=== PATIENT | male | born 1970 | race African-American/Black ===

== ENCOUNTER 2022-04-12 12:30 | Inpatient (IN) | payer OTHER ==
[2022-04-12 14:20] VITALS: BMI 47.5
[2022-04-12] MEDS ORDERED: NICOTINE 10 MG CARTRIDGE (INHALER) IH PRN (17:59)
[2022-04-12] MEDS ORDERED: DICYCLOMINE HCL 10 MG CAPSULE PO PRN (17:59)
[2022-04-12] MEDS ORDERED: chlordiazePOXIDE HCL 25 MG CAPSULE PO PRN (17:59)
[2022-04-12] MEDS ORDERED: BENZOCAINE/MENTHOL (CHLORASEPTIC ) LOZENGE MM PRN (17:59)
[2022-04-12] MEDS ORDERED: LOPERAMIDE HCL 2 MG CAPSULE PO PRN (17:59)
[2022-04-12] MEDS ORDERED: MAGNESIUM CITRATE 300 ML BOTTLE PO PRN (17:59)
[2022-04-12] MEDS ORDERED: ACETAMINOPHEN 325 MG TABLET (FP) PO PRN ×2 (17:59)
[2022-04-12] MEDS ORDERED: MAG HYDROX/AL HYDROX/SIMETH 30 ML UNIT-DOSE CUP PO PRN (17:59)
[2022-04-12] MEDS ORDERED: MAGNESIUM HYDROX 2400MG/30ML ORAL SUSPENSION 30 ML CUP PO PRN (17:59)
[2022-04-12] MEDS ORDERED: BISMUTH SUBSALICYLATE 524 MG/30 ML PO PRN (17:59)
[2022-04-12] MEDS ORDERED: IBUPROFEN 400 MG TABLET (FP) PO PRN (17:59)
[2022-04-12] MEDS ORDERED: ONDANSETRON *ODT* 4 MG TABLET SL PRN (17:59)
[2022-04-12] MEDS ORDERED: amLODIPine BESYLATE 5 MG TABLET (FP) ONE (19:17)
[2022-04-12] MEDS: amLODIPine BESYLATE 5 MG TABLET (FP) PO SCH (19:21)
[2022-04-12] MEDS: hydrOXYzine PAMOATE 25 MG CAPSULE (FP) PO PRN (19:46)
[2022-04-12] MEDS: METHOCARBAMOL 500 MG TABLET PO PRN (19:46)
[2022-04-12] MEDS: THIAMINE HCL 100 MG TABLET (FP) PO SCH (22:23)
[2022-04-12] MEDS: MELATONIN 5 MG TABLETS PO SCH (22:23)
[2022-04-12] MEDS: chlordiazePOXIDE HCL 25 MG CAPSULE PO SCH (22:23)
[2022-04-13] MEDS: chlordiazePOXIDE HCL 25 MG CAPSULE PO SCH ×4 (06:23→22:24)
[2022-04-13] MEDS: amLODIPine BESYLATE 5 MG TABLET (FP) PO SCH (10:07)
[2022-04-13] MEDS: PRENATAL VITAMINS W/ FOLIC ACID TABLET (FP) PO SCH (10:07)
[2022-04-13] MEDS: HYDROCHLOROTHIAZIDE 25 MG TABLET (FP) PO SCH (10:08)
[2022-04-13] MEDS: NICOTINE 21 MG/24 HOURS TOPICAL PATCH TD SCH (10:08)
[2022-04-13 13:30] LABS: ALBUMIN 3.2 g/dl (3.4-5.0); BLOOD UREA NITROGEN 22.3 mg/dL (7-18); CALCIUM 8.5 mg/dL (8.5-10.1)
[2022-04-13 13:33] LABS: CREATININE 1.2 mg/dL (0.55-1.3)
[2022-04-13 13:35] LABS: BILIRUBIN,TOTAL 0.4 mg/dL (0.2-1); TOT PROT 6.2 g/dl (6.4-8.2)
[2022-04-13 13:42] LABS: HEMOGLOBIN 12.9 GM/dL (11.7-16.9); MCH 29.7 pg (25.7-33.7); MCHC 33.1 g/dl (32.0-35.9); MEAN CELL VOLUME 89.6 fl (80-96); MEAN PLT VOLUME 8.8 fl (7.5-11.1); PLATELET COUNT 284 10^3/uL (134-434); RBC 4.35 M/mm3 (4.00-5.60); WHITE BLOOD COUNT 6.8 K/mm3 (4.0-10.0)
[2022-04-13] MEDS: MELATONIN 5 MG TABLETS PO SCH (22:23)
[2022-04-13] MEDS: METHOCARBAMOL 500 MG TABLET PO PRN (22:23)
[2022-04-13] MEDS: THIAMINE HCL 100 MG TABLET (FP) PO SCH (22:23)
[2022-04-13] MEDS: hydrOXYzine PAMOATE 25 MG CAPSULE (FP) PO PRN (22:23)
[2022-04-14] MEDS: chlordiazePOXIDE HCL 25 MG CAPSULE PO SCH ×4 (05:29→22:11)
[2022-04-14] MEDS: HYDROCHLOROTHIAZIDE 25 MG TABLET (FP) PO SCH (10:41)
[2022-04-14] MEDS: amLODIPine BESYLATE 5 MG TABLET (FP) PO SCH (10:41)
[2022-04-14] MEDS: PRENATAL VITAMINS W/ FOLIC ACID TABLET (FP) PO SCH (10:42)
[2022-04-14] MEDS: NICOTINE 21 MG/24 HOURS TOPICAL PATCH TD SCH (10:44)
[2022-04-14] MEDS ORDERED: PENICILLIN G BENZATHINE 2,400,000 UNIT/4 ML PFS IM ONE (11:20)
[2022-04-14] MEDS: IBUPROFEN 600 MG TABLET (FP) PO PRN ×2 (14:41→18:13)
[2022-04-14 20:56] VITALS: RESP 18
[2022-04-14] MEDS: MELATONIN 5 MG TABLETS PO SCH (22:11)
[2022-04-14] MEDS: THIAMINE HCL 100 MG TABLET (FP) PO SCH (22:11)
[2022-04-14] MEDS ORDERED: MELATONIN 5 MG TABLETS PO ONE (22:39)
[2022-04-15] MEDS ORDERED: chlordiazePOXIDE HCL 10 MG CAPSULE PO PRN
[2022-04-15] MEDS ORDERED: chlordiazePOXIDE HCL 10 MG CAPSULE PO SCH (05:00)
[2022-04-15 09:19] VITALS: BP 133/83; PULSE 85; TEMP 97.5
[2022-04-16] MEDS ORDERED: chlordiazePOXIDE HCL 10 MG CAPSULE PO SCH (05:00)
[2022-04-17] MEDS ORDERED: chlordiazePOXIDE HCL 10 MG CAPSULE PO ONE (05:00)
== END 2022-04-15 10:25 | disposition left against medical advice (07) | DRG 770 ==
LOC: YASAS 12:30 → Y3N 18:53
PROVIDERS: ADMIT Allergy & Immunology; ATTEND Surgery
PROC: HZ2ZZZZ Detoxification Services for Substance Abuse Treatment (ICD-10-PCS; principal; 2022-04-12)
DX: F10.230 Alcohol dependence with withdrawal, uncomplicated (principal); F14.20 Cocaine dependence, uncomplicated; F17.210 Nicotine dependence, cigarettes, uncomplicated; A53.9 Syphilis, unspecified; I10 Essential (primary) hypertension; K21.9 Gastro-esophageal reflux disease without esophagitis; Z89.612 Acquired absence of left leg above knee
CPT/HCPCS: 36415; 71046-TC-FY; 80053; 85027; 86593; 86780; 87811

== ENCOUNTER 2022-05-16 14:18 | Inpatient (IN) | payer OTHER ==
[2022-05-16 15:21] VITALS: BMI 43.9
[2022-05-16] MEDS ORDERED: ACETAMINOPHEN 325 MG TABLET (FP) PO PRN ×2 (16:55)
[2022-05-16] MEDS ORDERED: LOPERAMIDE HCL 2 MG CAPSULE PO PRN (16:55)
[2022-05-16] MEDS ORDERED: NALOXONE HCL (KLOXXADO) 8 MG SPRAY NS PRN (16:55)
[2022-05-16] MEDS ORDERED: BISMUTH SUBSALICYLATE 524 MG/30 ML PO PRN (16:55)
[2022-05-16] MEDS ORDERED: ONDANSETRON *ODT* 4 MG TABLET SL PRN (16:55)
[2022-05-16] MEDS ORDERED: chlordiazePOXIDE HCL 25 MG CAPSULE PO PRN (16:55)
[2022-05-16] MEDS ORDERED: POLYETHYLENE GLYCOL (HEALTHYLAX) 3350 17 GM PACKET PO PRN (16:55)
[2022-05-16] MEDS ORDERED: NICOTINE 10 MG CARTRIDGE (INHALER) IH PRN (16:55)
[2022-05-16] MEDS ORDERED: DICYCLOMINE HCL 10 MG CAPSULE PO PRN (16:55)
[2022-05-16] MEDS ORDERED: BENZOCAINE/MENTHOL (CHLORASEPTIC ) LOZENGE MM PRN (16:55)
[2022-05-16] MEDS ORDERED: IBUPROFEN 400 MG TABLET (FP) PO PRN (16:55)
[2022-05-16] MEDS ORDERED: IBUPROFEN 600 MG TABLET (FP) PO PRN (16:55)
[2022-05-16] MEDS ORDERED: MAGNESIUM HYDROX 2400MG/30ML ORAL SUSPENSION 30 ML CUP PO PRN (16:55)
[2022-05-16] MEDS ORDERED: MAG HYDROX/AL HYDROX/SIMETH 30 ML UNIT-DOSE CUP PO PRN (16:55)
[2022-05-16] MEDS: MELATONIN 5 MG TABLETS PO SCH (22:35)
[2022-05-16] MEDS: THIAMINE HCL 100 MG TABLET (FP) PO SCH (22:35)
[2022-05-16] MEDS: chlordiazePOXIDE HCL 25 MG CAPSULE PO SCH (22:36)
[2022-05-17] MEDS: chlordiazePOXIDE HCL 25 MG CAPSULE PO SCH ×2 (05:40→10:57)
[2022-05-17] MEDS: PRENATAL VITAMINS W/ FOLIC ACID TABLET (FP) PO SCH (10:57)
[2022-05-17] MEDS: HYDROCHLOROTHIAZIDE 25 MG TABLET (FP) PO SCH (10:57)
[2022-05-17] MEDS: chlordiazePOXIDE HCL 10 MG CAPSULE PO SCH ×2 (18:30→22:55)
[2022-05-17] MEDS: MELATONIN 5 MG TABLETS PO SCH (22:56)
[2022-05-17] MEDS: THIAMINE HCL 100 MG TABLET (FP) PO SCH (22:56)
[2022-05-18] MEDS: chlordiazePOXIDE HCL 25 MG CAPSULE PO SCH ×2 (07:11→10:41)
[2022-05-18] MEDS: PRENATAL VITAMINS W/ FOLIC ACID TABLET (FP) PO SCH (10:39)
[2022-05-18] MEDS: hydrOXYzine PAMOATE 25 MG CAPSULE (FP) PO PRN (10:39)
[2022-05-18] MEDS: HYDROCHLOROTHIAZIDE 25 MG TABLET (FP) PO SCH (10:39)
[2022-05-18 10:44] LABS: ALBUMIN 3.1 g/dl (3.4-5.0); BILIRUBIN,TOTAL 0.3 mg/dL (0.2-1); BLOOD UREA NITROGEN 18.6 mg/dL (7-18); CALCIUM 8.3 mg/dL (8.5-10.1); CREATININE 1.1 mg/dL (0.55-1.3); TOT PROT 6.4 g/dl (6.4-8.2)
[2022-05-18] MEDS ORDERED: SIMETHICONE 80 MG TAB.CHEW (FP) PO PRN (12:05)
[2022-05-18] MEDS ORDERED: diazePAM 5 MG TABLET PO PRN (12:12)
[2022-05-18] MEDS: diazePAM 5 MG TABLET PO SCH ×2 (13:01→22:56)
[2022-05-18] MEDS: METHOCARBAMOL 500 MG TABLET PO PRN (13:03)
[2022-05-18] MEDS: THIAMINE HCL 100 MG TABLET (FP) PO SCH (22:56)
[2022-05-18] MEDS: MELATONIN 5 MG TABLETS PO SCH (23:41)
[2022-05-19] MEDS ORDERED: chlordiazePOXIDE HCL 10 MG CAPSULE PO PRN
[2022-05-19] MEDS ORDERED: chlordiazePOXIDE HCL 10 MG CAPSULE PO SCH (05:00)
[2022-05-19] MEDS: PRENATAL VITAMINS W/ FOLIC ACID TABLET (FP) PO SCH (10:51)
[2022-05-19] MEDS: diazePAM 5 MG TABLET PO SCH ×2 (10:52→22:57)
[2022-05-19] MEDS: HYDROCHLOROTHIAZIDE 25 MG TABLET (FP) PO SCH (10:52)
[2022-05-19] MEDS: hydrOXYzine PAMOATE 25 MG CAPSULE (FP) PO PRN (10:52)
[2022-05-19] MEDS: METHOCARBAMOL 500 MG TABLET PO PRN ×2 (10:52→22:57)
[2022-05-19 20:50] VITALS: TEMP 97.1
[2022-05-19] MEDS: THIAMINE HCL 100 MG TABLET (FP) PO SCH (22:57)
[2022-05-19] MEDS: MELATONIN 5 MG TABLETS PO SCH (22:57)
[2022-05-20] MEDS ORDERED: chlordiazePOXIDE HCL 10 MG CAPSULE PO SCH (05:00)
[2022-05-20 08:09] VITALS: RESP 20
[2022-05-20 10:18] VITALS: BP 147/96; PULSE 105
[2022-05-20] MEDS: PRENATAL VITAMINS W/ FOLIC ACID TABLET (FP) PO SCH (10:19)
[2022-05-20] MEDS: diazePAM 5 MG TABLET PO SCH (10:19)
[2022-05-20] MEDS: HYDROCHLOROTHIAZIDE 25 MG TABLET (FP) PO SCH (10:19)
[2022-05-21] MEDS ORDERED: chlordiazePOXIDE HCL 10 MG CAPSULE PO ONE (05:00)
== END 2022-05-20 10:55 | disposition home or self-care (01) | DRG 774 ==
LOC: YASAS 14:18 → Y6N 17:17
PROVIDERS: ADMIT Allergy & Immunology; ATTEND Surgery
PROC: HZ2ZZZZ Detoxification Services for Substance Abuse Treatment (ICD-10-PCS; principal; 2022-05-16)
DX: F10.230 Alcohol dependence with withdrawal, uncomplicated (principal); F14.20 Cocaine dependence, uncomplicated; F17.210 Nicotine dependence, cigarettes, uncomplicated; I10 Essential (primary) hypertension; K21.9 Gastro-esophageal reflux disease without esophagitis; R76.8 Other specified abnormal immunological findings in serum; E66.01 Morbid (severe) obesity due to excess calories; Z68.41 Body mass index [BMI] 40.0-44.9, adult; Z89.512 Acquired absence of left leg below knee; Z99.89 Dependence on other enabling machines and devices
CPT/HCPCS: 36415; 80053; C9803-CS; U0003; U0005

== ENCOUNTER 2022-05-31 15:05 | Inpatient (IN) | payer OTHER ==
[2022-05-31] MEDS ORDERED: MAG HYDROX/AL HYDROX/SIMETH 30 ML UNIT-DOSE CUP PO PRN (16:32)
[2022-05-31] MEDS ORDERED: POLYETHYLENE GLYCOL (HEALTHYLAX) 3350 17 GM PACKET PO PRN (16:32)
[2022-05-31] MEDS ORDERED: hydrOXYzine PAMOATE 25 MG CAPSULE (FP) PO PRN (16:32)
[2022-05-31] MEDS ORDERED: BISMUTH SUBSALICYLATE 524 MG/30 ML PO PRN (16:32)
[2022-05-31] MEDS ORDERED: DICYCLOMINE HCL 10 MG CAPSULE PO PRN (16:32)
[2022-05-31] MEDS ORDERED: MAGNESIUM HYDROX 2400MG/30ML ORAL SUSPENSION 30 ML CUP PO PRN (16:32)
[2022-05-31] MEDS ORDERED: chlordiazePOXIDE HCL 25 MG CAPSULE PO PRN (16:32)
[2022-05-31] MEDS ORDERED: IBUPROFEN 400 MG TABLET (FP) PO PRN (16:32)
[2022-05-31] MEDS ORDERED: BENZOCAINE/MENTHOL (CHLORASEPTIC ) LOZENGE MM PRN (16:32)
[2022-05-31] MEDS ORDERED: ACETAMINOPHEN 325 MG TABLET (FP) PO PRN ×2 (16:32)
[2022-05-31] MEDS ORDERED: ONDANSETRON *ODT* 4 MG TABLET SL PRN (16:32)
[2022-05-31] MEDS ORDERED: NALOXONE HCL (KLOXXADO) 8 MG SPRAY NS PRN (16:32)
[2022-05-31] MEDS ORDERED: NICOTINE 10 MG CARTRIDGE (INHALER) IH PRN (16:32)
[2022-05-31] MEDS ORDERED: LOPERAMIDE HCL 2 MG CAPSULE PO PRN (16:32)
[2022-05-31] MEDS ORDERED: METHOCARBAMOL 500 MG TABLET PO PRN (16:32)
[2022-05-31] MEDS ORDERED: SIMETHICONE 80 MG TAB.CHEW (FP) PO PRN (16:39)
[2022-05-31] MEDS ORDERED: cloNIDine HCL 0.1 MG TABLET PO ONE (16:40)
[2022-05-31] MEDS: chlordiazePOXIDE HCL 25 MG CAPSULE PO SCH ×2 (17:04→22:27)
[2022-05-31] MEDS ORDERED: MELATONIN 5 MG TABLETS PO SCH (22:00)
[2022-05-31] MEDS: THIAMINE HCL 100 MG TABLET (FP) PO SCH (22:26)
[2022-06-01] MEDS: IBUPROFEN 600 MG TABLET (FP) PO PRN ×2 (01:30→17:52)
[2022-06-01] MEDS: chlordiazePOXIDE HCL 25 MG CAPSULE PO SCH ×4 (06:13→22:06)
[2022-06-01] MEDS: PRENATAL VITAMINS W/ FOLIC ACID TABLET (FP) PO SCH (10:09)
[2022-06-01] MEDS: HYDROCHLOROTHIAZIDE 25 MG TABLET (FP) PO SCH (10:10)
[2022-06-01] MEDS: amLODIPine BESYLATE 5 MG TABLET (FP) PO SCH (18:49)
[2022-06-01] MEDS ORDERED: MELATONIN 5 MG TABLETS PO SCH (22:00)
[2022-06-01] MEDS: THIAMINE HCL 100 MG TABLET (FP) PO SCH (22:06)
[2022-06-02] MEDS: chlordiazePOXIDE HCL 25 MG CAPSULE PO SCH ×2 (05:18→10:46)
[2022-06-02 06:13] VITALS: RESP 18
[2022-06-02 09:25] LABS: HEMATOCRIT 40.4 % (35.4-49); MCH 28.9 pg (25.7-33.7); MCHC 32.3 g/dl (32.0-35.9); MEAN CELL VOLUME 89.6 fl (80-96); MEAN PLT VOLUME 8.7 fl (7.5-11.1); PLATELET COUNT 229 10^3/uL (134-434); RBC 4.51 M/mm3 (4.00-5.60); WHITE BLOOD COUNT 6.6 K/mm3 (4.0-10.0)
[2022-06-02 09:35] LABS: BLOOD UREA NITROGEN 13.7 mg/dL (7-18); CALCIUM 8.8 mg/dL (8.5-10.1)
[2022-06-02 09:36] LABS: ALBUMIN 3.1 g/dl (3.4-5.0)
[2022-06-02 09:39] LABS: BILIRUBIN,TOTAL 0.3 mg/dL (0.2-1); TOT PROT 6.4 g/dl (6.4-8.2)
[2022-06-02] MEDS: HYDROCHLOROTHIAZIDE 25 MG TABLET (FP) PO SCH (10:46)
[2022-06-02] MEDS: amLODIPine BESYLATE 5 MG TABLET (FP) PO SCH (10:46)
[2022-06-02] MEDS: PRENATAL VITAMINS W/ FOLIC ACID TABLET (FP) PO SCH (10:46)
[2022-06-02 12:51] VITALS: BP 160/99; PULSE 104; TEMP 97.3
[2022-06-03] MEDS ORDERED: chlordiazePOXIDE HCL 10 MG CAPSULE PO PRN
[2022-06-03] MEDS ORDERED: chlordiazePOXIDE HCL 10 MG CAPSULE PO SCH (05:00)
[2022-06-04] MEDS ORDERED: chlordiazePOXIDE HCL 10 MG CAPSULE PO SCH (05:00)
[2022-06-05] MEDS ORDERED: chlordiazePOXIDE HCL 10 MG CAPSULE PO ONE (05:00)
== END 2022-06-02 15:30 | disposition left against medical advice (07) | DRG 770 ==
LOC: YASAS 15:05 → SUATTDRO 15:05 → Y3N 16:33
PROVIDERS: ADMIT Allergy & Immunology; ATTEND Surgery
PROC: HZ2ZZZZ Detoxification Services for Substance Abuse Treatment (ICD-10-PCS; principal; 2022-05-31)
DX: F10.230 Alcohol dependence with withdrawal, uncomplicated (principal); F14.20 Cocaine dependence, uncomplicated; F17.210 Nicotine dependence, cigarettes, uncomplicated; F19.282 Other psychoactive substance dependence with psychoactive substance-induced sleep disorder; F19.24 Other psychoactive substance dependence with psychoactive substance-induced mood disorder; F41.9 Anxiety disorder, unspecified; F32.A Depression, unspecified; I10 Essential (primary) hypertension; K21.9 Gastro-esophageal reflux disease without esophagitis; E66.9 Obesity, unspecified; Z68.39 Body mass index [BMI] 39.0-39.9, adult; Z89.612 Acquired absence of left leg above knee; Z99.89 Dependence on other enabling machines and devices; F91.8 Other conduct disorders; Z91.199 Patient's noncompliance with other medical treatment and regimen due to unspecified reason
CPT/HCPCS: 36415; 80053; 85027; 86593; 86780; 87811; C9803-CS; U0003; U0005